=== PATIENT | male | born 1995 | race Caucasian/White ===

== ENCOUNTER 2017-07-04 11:29 | Emergency (ER) | payer OTHER ==
[~2017-07-04] VITALS: Ht 182.9 cm; Wt 75.0 kg
[2017-07-04 11:50] VITALS: BP 144/85
== END 2017-07-04 17:50 | disposition home or self-care (01) ==
LOC: ER 17:11
DX: H60.91 Unspecified otitis externa, right ear (principal)
CPT/HCPCS: 99283